=== PATIENT | female | born 1950 | race Caucasian/White ===

== ENCOUNTER 2023-06-25 08:00 | Outpatient (CLI) | payer MEDICARE | END 2023-06-25 08:01 | disposition home or self-care (01) | LOC: LAB.N 08:00 | PROVIDERS: ATTEND Specialist | DX: U07.1 COVID-19 (principal) ==

== ENCOUNTER 2023-07-14 07:30 | Outpatient (CLI) | payer MEDICARE | END 2023-07-14 07:45 | disposition home or self-care (01) | LOC: LAB.N 07:30 | PROVIDERS: ATTEND Physician Assistant Medical | DX: N30.01 Acute cystitis with hematuria (principal) | CPT/HCPCS: 87086; 87181 ==